=== PATIENT | male | born 1980 | race Caucasian/White ===

== ENCOUNTER 2018-01-05 19:24 | Emergency (ER) | payer OTHER ==
[~2018-01-05] VITALS: Ht 170.2 cm; Wt 59.0 kg
--- NOTE | ~2018-01-05 | EKG ---
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1980 Requested By: Walter Alamo Order Number: [id number] MD: Allen Molina Measurements Intervals [place] Rate: 54 P: 57 MS: 186 QRS: 91 QRSD: 102 T: 39 QT: 407 QTc: 386 Interpretive Statements Sinus rhythm Borderline right axis deviation Probable left ventricular hypertrophy ST elev, probable normal early repol pattern No previous ECG available for comparison Electronically Signed On 01-06-2018 10:12:44 CDT by Allen Molina [email or web address] <ELECTRONICALLY SIGNED> By: Allen Molina MD, FACC 01/06/18 1012 2023 22 Allen Molina MD, FACC /EPI
--- NOTE | ~2018-01-05 | EKG ---
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 : 1980 Requested By: Walter Alamo Order Number: [id number] MD: Allen Molina Measurements Intervals [place] Rate: 53 P: 21 NM: 170 QRS: 92 QRSD: 100 T: 39 QT: 420 QTc: 395 Interpretive Statements Sinus rhythm Diffuse ST elevation consider early repolarization No previous ECG available for comparison Electronically Signed On 01-06-2018 10:12:30 CDT by Allen Molian [email or web address] <ELECTRONICALLY SIGNED> By: Allen Molina MD, [facility] 01/06/18 1012 05 05 Allen Molina MD, FACC /EPI
[2018-01-05 20:08] LABS: URINE BILIRUBIN NEGATIVE (Negative); URINE BLOOD TRACE (Negative); URINE CLARITY CLEAR; URINE COLOR YELLOW; URINE GLUCOSE-RANDOM* NEGATIVE (Negative); URINE KETONES NEGATIVE (Negative); URINE LEUKOCYTES-REFLEX NEGATIVE (Negative); URINE NITRITE-REFLEX NEGATIVE (Negative); URINE PROTEIN (DIPSTICK) NEGATIVE (Negative); URINE SPECIFIC GRAVITY 1.025 (1.005-1.035); URINE UROBILINOGEN 0.2 E.U./dl (0.2-1.0)
[2018-01-05 20:12] LABS: HEMATOCRIT 40.2 % (42.0-52.0); HEMOGLOBIN 14.1 gm/dL (14.0-18.0); MCH 31.4 pg (26.0-34.0); MCHC 35.1 g/dL (28.0-37.0); MCV 89.5 fL (80.0-100.0); PLATELET COUNT 282 thou/uL (150-400); RDW 12.8 % (10.5-14.5); WBC 6.2 thou/uL (4.0-11.0)
[2018-01-05 20:18] LABS: ANION GAP 4 mmol/L (7-16); BUN 16 mg/dL (7-18); CALCIUM 9.1 mg/dL (8.5-10.1); CHLORIDE 103 mmol/L (98-107); CO2 30 mmol/L (21-32); CREATININE 0.9 mg/dL (0.7-1.3); GLUCOSE 106 mg/dL (74-106); POTASSIUM 3.9 mmol/L (3.5-5.1); SODIUM 137 mmol/L (136-145)
[2018-01-05 20:27] LABS: LIPASE 696 U/L (73-393); SGOT 76 U/L (15-37); SGPT 69 U/L (30-65); TOTAL BILIRUBIN 0.4 mg/dL (<0.1-1.0); TOTAL PROTEIN 7.2 g/dL (6.4-8.2); TROPONIN-I <0.06 ng/mL (<0.06)
[2018-01-05 20:39] LABS: ABSOLUTE NEUTROPHILS 3.8 thou/uL (1.4-8.2)
[2018-01-05] MEDS ORDERED: PEPCID20 MG PO (22:20)
[2018-01-05] MEDS ORDERED: ZOFRAN ODT4 MG PO (22:21)
[2018-01-05 22:30] VITALS: BP 110/62
== END 2018-01-05 22:32 | disposition home or self-care (01) ==
LOC: ER 19:24
PROVIDERS: Physician Assistant
DX: R10.13 Epigastric pain (principal); R11.0 Nausea

== ENCOUNTER → 2018-01-12 | Outpatient (CLI) | payer OTHER ==
[~2018-01-12] MED LIST: PEPCID20 MG PO; ZOFRAN ODT4 MG PO
== END ==
LOC: ULTRA 10:33
DX: R10.11 Right upper quadrant pain (principal)